=== PATIENT | female | born 1990 | race African-American/Black ===

== ENCOUNTER 2019-08-07 08:06 | Emergency (ER) | payer MEDICAID ==
[~2019-08-07] VITALS: Ht 167.6 cm; Wt 80.0 kg
[2019-08-07 08:27] VITALS: BP 140/92
[2019-08-07] MEDS ORDERED: CEFTRIAXONE SODIUM 250 MG/VIAL IM ONE (09:15)
[2019-08-07] MEDS ORDERED: LIDOCAINE HCL/PF 1% 10 MG/ML 5ML VIAL IJ ONE (09:15)
[2019-08-07] MEDS ORDERED: AZITHROMYCIN 500 MG TABLET PO ONE (09:15)
[2019-08-07] MEDS ORDERED: IBUPROFEN 600MG TABLET PO ONE (09:30)
[2019-08-07 10:07] LABS: CLARITY URINE CLEAR (CLEAR); COLOR URINE YELLOW (YELLOW); KETONES URINE NEGATIVE (NEGATIVE); LEUKOCYTE ESTERASE URINE NEGATIVE (NEGATIVE); NITRITE URINE NEGATIVE (NEGATIVE); OCCULT BLOOD URINE 2+ (NEGATIVE); PROTEIN URINE NEGATIVE (NEGATIVE); SPECIFIC GRAVITY URINE 1.001 (1.005-1.030); UROBILINOGEN URINE 0.2 E.U./dL (0.2-1.0)
[2019-08-07 10:08] LABS: UCG SCREEN NEGATIVE
[2019-08-09 04:09] LABS: CHLAMYDIA TRACHOMATIS NAA Negative (Negative); NEISSERIA GONORRHOEAE NAA Negative (Negative)
== END 2019-08-07 11:44 | disposition home or self-care (01) ==
LOC: ER 08:26
DX: Z20.2 Contact with and (suspected) exposure to infections with a predominantly sexual mode of transmission (principal); M54.5 Low back pain; F41.9 Anxiety disorder, unspecified; F32.9 Major depressive disorder, single episode, unspecified; F20.9 Schizophrenia, unspecified
CPT/HCPCS: 81003; 81025; 87491; 87591; 96372; 99283; J0696; J3490